=== PATIENT | male | born 1995 | race Caucasian/White ===

== ENCOUNTER 2022-08-31 18:04 | Emergency (ER) | payer OTHER ==
[~2022-08-31] VITALS: Ht 175.3 cm; Wt 74.8 kg
[2022-08-31 18:07] VITALS: BP 132/97
[2022-08-31] MEDS ORDERED: AUGMENTIN 875 MG TAB (AMOXICILLIN/CLAVULANATE) PO STA (18:11)
[2022-08-31] MEDS ORDERED: LIDOCAINE 1% INJ 20 ML VIAL INJ STA (18:11)
[2022-08-31] MEDS ORDERED: LIDOCAINE 1% INJ 20 ML VIAL ONE (18:12)
--- NOTE | 2022-08-31 19:07 | ED Upper Extremity ---
General Chief Complaint: Bite-Animal/Human/Insect Stated Complaint: DOG BITE; OLEG WRIST INJ Nursing Triage Note: Patient reports he was bitten on his wrists bilaterally by two Melia Bulls that are family pets. He reports the dogs were fighting over a bone and he tried to separate them. He states the dogs are fully vaccinated. He states his tetanus is up to date. Source: patient History of Present Illness Date Seen by Provider: Aug 31, 2022 Time Seen by Provider: 18:08 Initial Comments 27-year-old male presenting with complaints of being bitten by his rescue pit bull. He states that he had a rescue football and another 1 that his younger at his house. He has had a rescue dog for over a year from the [facility]. The 2 dogs were trying to fight over a bone and she tried to separate them. He states that the dogs are his own and they are fully vaccinated. His tetanus is up-to-date from a laceration 3 weeks ago to his left elbow. He denies any numbness or tingling in his hands or fingers. He does have increased pain with movement of his hands and arms. He denies allergies to medications. This happened just prior to coming to the emergency department. He lives in [place]. Onset: just prior to arrival Severity: moderate Pain/Injury Location: bilateral forearm Method of Injury: other (Dog bites to bilateral forearms) Modifying Factors: Worse With Movement Allergies and Home Medications Allergies Coded Allergies: No Known Drug Allergies (Unverified , 08/31/22) Patient Home Medication List Home Medication List Reviewed: Yes Amoxicillin/Potassium Clav (Amox Tr-K Clv 875-125 mg Tab) 875 Mg-125 Mg Tablet, 1 EACH PO BID Prescribed by: LOBO IRVING on 08/31/222016 Ibuprofen (Ibuprofen) 800 Mg Tablet, 800 MG PO Q8H PRN for PAIN Prescribed by: LOBO IRVING on 08/31/222016 Review of Systems Constitutional: No chills, No fever EENTM: no symptoms reported Respiratory: no symptoms reported Cardiovascular: no symptoms reported Gastrointestinal: no symptoms reported Genitourinary: no symptoms reported Musculoskeletal: see HPI Skin: see HPI Psychiatric/Neurological: Denies Numbness, Denies Paresthesia, Denies Tingling, Denies Weakness Past Vqrfxcu-Dnhexk-Wfsooz Hx Patient Social History Tobacco Use?: No Substance use?: No Alcohol Use?: Yes Pt feels they are or have been: No Physical Exam Vital Signs Vital Signs - First Documented 08/31/22 18:07 Temp 36.7 Pulse 96 Resp 18 B/P (MAP) 132/97 (109) Pulse Ox 100 O2 Delivery Room Air Capillary Refill : Less Than 3 Seconds Height, Weight, BMI Height: '" Weight: lbs. oz. kg; 24.00 BMI Method: General Appearance: WD/WN, no apparent distress HEENT: PERRL/EOMI Cardiovascular: normal peripheral pulses, regular rate, rhythm Elbow/Forearm: pain, soft tissue tenderness (Multiple abrasions to bilateral forearms with laceration to the right forearm flexor surface and puncture wounds to the right extensor surface. He also has puncture wounds to the left forearm on the extensor and flexor surfaces.) Wrist: Yes no evidence of injury, Yes normal ROM Hand: normal inspection, non-tender, no evidence of injury, normal ROM, Bilateral Neurologic/Tendon: normal sensation, normal motor functions, normal tendon functions Neurologic/Psychiatric: no motor/sensory deficits, alert, oriented x 3 Skin: warm/dry Procedures/Interventions Wound Location: Upper Extremities (Flexor surface of the right forearm) Wound Length (cm): 2.7 Wound's Depth, Shape: linear, sub Q Wound Explored: contaminated Irrigated w/ Saline (ccs): 250 Betadine Prep?: Yes Anesthesia: 1% Lidocaine Volume Anesthetic (ccs): 4 Suture: Prolene Suture Size: 4-0 Number of Sutures: 3 Sterile Dressing Applied?: Yes Progress After obtaining verbal consent from the patient the wound was anesthetized with plain 1% lidocaine using a total of 4 mL. Then the wound was irrigated and scrubbed with Betadine and sterile water. No foreign bodies were visualized. Using 4-0 Prolene the wound edges were loosely approximated with 3 simple interrupted stitches. Patient tolerated procedure well without any immediate complications. Counseled to have stitches out in 10 to 14 days and be seen sooner if having signs of infection. Started on Augmentin here in the emergency department and will continue her course without to help as prophylactic against infection from the dog bite Wound Location: Upper Extremities (Right forearm extensor surface) Wound Length (cm): 1 Wound's Depth, Shape: linear, contused tissue, sub Q Wound Explored: contaminated Irrigated w/ Saline (ccs): 250 Betadine Prep?: Yes Anesthesia: 1% Lidocaine Volume Anesthetic (ccs): 1 Suture: Prolene Suture Size: 4-0 Number of Sutures: 1 Sterile Dressing Applied?: Yes Progress After obtaining verbal consent from the patient the wound was anesthetized with plain 1% lidocaine using a total of 1 mL. Then the wound was irrigated and scrubbed with Betadine and sterile water. No foreign bodies were visualized. Using 4-0 Prolene the wound edges were loosely approximated with 1 simple interrupted stitche. Patient tolerated procedure well without any immediate complications. Counseled to have stitches out in 10 to 14 days and be seen sooner if having signs of infection. Started on Augmentin here in the emergency department and will continue for a course to help as prophylactic against infection from the dog bite Wound Location: Upper Extremities (Left forearm extensor surface) Wound Length (cm): 1 Wound's Depth, Shape: linear, contused tissue, sub Q Wound Explored: contaminated Irrigated w/ Saline (ccs): 250 Betadine Prep?: Yes Anesthesia: 1% Lidocaine Volume Anesthetic (ccs): 1 Suture: Prolene Suture Size: 4-0 Number of Sutures: 1 Sterile Dressing Applied?: Yes Progress After obtaining verbal consent from the patient the wound was anesthetized with plain 1% lidocaine using a total of 1 mL. Then the wound was irrigated and scrubbed with Betadine and sterile water. No foreign bodies were visualized. Using 4-0 Prolene the wound edges were loosely approximated with 1 simple interrupted stitche. Patient tolerated procedure well without any immediate complications. Counseled to have stitches out in 10 to 14 days and be seen sooner if having signs of infection. Started on Augmentin here in the emergency department and will continue for a course to help as prophylactic against infection from the dog bite Wound Location: Upper Extremities (left extensor surface forearm) Wound Length (cm): 1 Wound's Depth, Shape: linear, contused tissue, sub Q Wound Explored: contaminated Irrigated w/ Saline (ccs): 250 Betadine Prep?: Yes Anesthesia: 1% Lidocaine Volume Anesthetic (ccs): 1 Suture: Prolene Suture Size: 4-0 Number of Sutures: 1 Sterile Dressing Applied?: Yes Progress After obtaining verbal consent from the patient the wound was anesthetized with plain 1% lidocaine using a total of 1 mL. Then the wound was irrigated and scrubbed with Betadine and sterile water. No foreign bodies were visualized. Using 4-0 Prolene the wound edges were loosely approximated with 1 simple interrupted stitche. Patient tolerated procedure well without any immediate complications. Counseled to have stitches out in 10 to 14 days and be seen sooner if having signs of infection. Started on Augmentin here in the emergency department and will continue for a course to help as prophylactic against infection from the dog bite Progress/Results/Core Measures Results/Orders My Orders Orders - LOBO IRVING MD Lidocaine 1% Inj 20 Ml (Xylocaine 1% Inj (08/31/22 18:11) Suture Set At Bedside (08/31/22 18:11) Wound Dressing-Ed (08/31/22 18:11) Amoxicillin/Clavulanate Tablet (Augmenti (08/31/22 18:11) Lidocaine 1% Inj 20 Ml (Xylocaine 1% Inj (08/31/22 18:12) Ice: Apply To Affected Area (08/31/22 20:20) Ice: Apply To Affected Area (08/31/22 20:20) Vital Signs/I&O 08/31/22 18:07 Temp 36.7 Pulse 96 Resp 18 B/P (MAP) 132/97 (109) Pulse Ox 100 O2 Delivery Room Air Blood Pressure Mean: 109 Progress Progress Note : Progress Note Cleaned wounds with Betadine and sterile water. Loosely approximated wound edges on the gaping wounds. Counseled to have stitches out in 10 to 14 days or sooner if having signs of infection. Started on Augmentin here in the ED and will continue with full course of antibiotic to treat prophylactically for infection from the dog bites Departure Impression Primary Impression: Laceration of right forearm without foreign body Qualified Codes: S51.811A - Laceration without foreign body of right forearm, initial encounter Additional Impressions: Puncture wound of left forearm without foreign body Qualified Codes: S51.832A - Puncture wound without foreign body of left forearm, initial encounter Puncture wound of right forearm without foreign body Qualified Codes: S51.831A - Puncture wound without foreign body of right forearm, initial encounter Dog bite of left forearm without complication Qualified Codes: S51.852A - Open bite of left forearm, initial encounter; W54.0XXA - Bitten by dog, initial encounter Dog bite of right forearm without complication Qualified Codes: S51.851A - Open bite of right forearm, initial encounter; W54.0XXA - Bitten by dog, initial encounter Disposition: 01 HOME, SELF-CARE Condition: Stable Departure-Patient Inst. Decision time for Depature: 20:14 Referrals: [facility] Patient Instructions: Animal Bites ED, Laceration Repair With Stitches ED Add. Discharge Instructions: Keep wounds clean, dry and covered for the first 24 hours. After that you may wash them with soap and water but do not soak them. If the wounds make it dirty or or continuing to ooze fluid and bleed then you should dress them with antibiotic ointment and nonstick gauze. Take the full course of antibiotics to help prevent infection from the bites. Try to elevate your arms when possible to help with swelling and bruising. Apply ice 15 to 20 minutes every few hours as needed for swelling and bruising. After the first 2 to 3 days he could add in heat to help absorb bruising. If you use heat before that it will just make the areas bruise and bleed more. The stitches should be removed in 10 to 14 days. Be seen sooner if there are signs of infection such as redness streaking up your arms, pus draining from the wounds, fever over 101 Fahrenheit. All discharge instructions reviewed with patient and/or family. Voiced understanding. Scripts Ibuprofen (Ibuprofen) 800 Mg Tablet 800 MG PO Q8H PRN for PAIN for 10 Days, #30 TAB 0 Refills Prov: LOBO IRVING MD 08/31/22 Amoxicillin/Potassium Clav (Amox Tr-K Clv 875-125 mg Tab) 875 Mg-125 Mg Tablet 1 EACH PO BID for dog bites for 10 Days, #20 TAB 0 Refills Prov: LOBO IRVING MD 08/31/22 LOBO IRVING MD Aug 31, 2022 19:07
[2022-08-31] MEDS ORDERED: IBUP-1780 PO (20:17)
[2022-08-31] MEDS ORDERED: AMOX1TAB12 PO (20:17)
== END 2022-08-31 20:40 | disposition home or self-care (01) ==
LOC: ER FS 18:06
DX: S51.811A Laceration without foreign body of right forearm, initial encounter (principal); S51.832A Puncture wound without foreign body of left forearm, initial encounter; S51.831A Puncture wound without foreign body of right forearm, initial encounter; Z28.310 Unvaccinated for COVID-19; W54.0XXA Bitten by dog, initial encounter
CPT/HCPCS: 12002